=== PATIENT | female | born 1950 | race African-American/Black ===

== ENCOUNTER 2019-02-17 10:27 | Emergency (ER) | payer OTHER ==
[2019-02-17 10:34] VITALS: BP 123/47; PULSE 79; TEMP 98; BMI 26.8
--- NOTE | 2019-02-17 12:03 | PDOC ---
History of Present Illness - General Chief Complaint: Edema Stated Complaint: FINGER PAIN/INFECTION Time Seen by Provider: 02/17/19 10:58 History Source: Patient Exam Limitations: No Limitations Past History - Travel Traveled outside of the country in the last 30 days: No Close contact w/someone who was outside of country & ill: No - Past Medical History Allergies/Adverse Reactions: Allergies Allergy/AdvReac Type Severity Reaction Status Date / Time shrimp Allergy Severe Swelling Uncoded 02/17/19 10:34 Home Medications: Ambulatory Orders Atenolol [Tenormin] 25 mg PO DAILY 10/31/12 Chlorthalidone 50 mg PO DAILY 10/31/12 Fenofibrate 160 mg PO DAILY 10/31/12 Gabapentin [Neurontin] 300 mg PO BID 10/31/12 Losartan Potassium [Cozaar -] 100 mg PO DAILY 10/31/12 Naproxen [Naprosyn] 500 mg PO BID PRN 10/31/12 Raloxifene HCl [Evista] 60 mg PO DAILY 10/31/12 Oxycodone HCl/Acetaminophen [Percocet 5-325 mg Tablet] 1 - 2 tab PO Q6H PRN #0 tablet 11/01/12 Cephalexin Monohydrate [Keflex -] 500 mg PO BID #14 capsule 02/17/19 Naproxen 500 mg PO BID #14 tablet. 02/17/19 Anemia: Yes Asthma: Yes Cancer: No Cardiac Disorders: No CVA: No COPD: No CHF: No Dementia: No Diabetes: No (BORDERLINE) GI Disorders: No Disorders: No HTN: Yes Hypercholesterolemia: Yes Liver Disease: No Seizures: No Thyroid Disease: No - Surgical History Abdominal Surgery: Yes (HERNIA REPAIR) Appendectomy: No Cardiac Surgery: No Cholecystectomy: No Lung Surgery: No Neurologic Surgery: No Orthopedic Surgery: No - Psycho Social/Smoking Cessation Hx Smoking History: Current every day smoker Have you smoked in the past 12 months: No Number of Cigarettes Smoked Daily: 3 Information on smoking cessation initiated: No Hx Alcohol Use: No Drug/Substance Use Hx: No Substance Use Type: Alcohol Hx Substance Use Treatment: No Review of Systems - Review of Systems Able to Perform ROS?: Yes Comments:: 02/17/19 12:46 CONSTITUTIONAL: Absent: fever, chills, diaphoresis, generalized weakness, malaise, loss of appetite HEENT: Absent: rhinorrhea, nasal congestion, throat pain, throat swelling, difficulty swallowing, mouth swelling, ear pain, eye pain, visual Changes MUSCULOSKELETAL: Absent: myalgia, arthralgia, joint swelling SKIN: Present: R 2nd digit pain Absent: rash, itching, pallor NEUROLOGIC: Absent: headache, focal weakness or paresthesias, dizziness, unsteady gait, seizure, mental status changes, bladder or bowel incontinence PSYCHIATRIC: Absent: anxiety, depression, suicidal or homicidal ideation, hallucinations. Is the patient limited Azeri proficient: No *Physical Exam - Vital Signs Last Vital Signs Temp Pulse Resp BP Pulse Ox 98.0 F 79 16 123/47 L 99 02/17/19 10:31 02/17/19 10:31 02/17/19 10:31 02/17/19 10:31 02/17/19 10:31 - Physical Exam Comments: 02/17/19 12:48 GENERAL: The patient is awake, alert, and fully oriented, in no acute distress. HEAD: Normal with no signs of trauma. EYES: Pupils equal, round and reactive to light, extraocular movements intact, sclera anicteric, conjunctiva clear. EXTREMITIES: Normal range of motion, no edema. NEUROLOGICAL: Normal speech, normal gait. PSYCH: Normal mood, normal affect. SKIN: Tenderness to palpation at the tip of the left second digit along the lateral nail bed. No obvious fluctuance. Warm, Dry, normal turgor, no rashes or lesions noted. Medical Decision Making - Medical Decision Making 02/17/19 12:51 The patient is a 68-year-old female past medical history of hypertension, hyperlipidemia, non-insulin dependent diabetes, presents to the ER today with left second digit pain for 3 days. She states that she has been soaking it at home but is not relieved her symptoms. She states she gets her nails done approximately every 3 weeks. Last week her right second nail broke and she agrees occluded. Denies fevers, chills, numbness and tingling weakness the affected extremity. A/P: Cellulitis/paronychia On exam patient exquisitely tender to the lateral aspect of the right second digit (nailbed) No obvious fluctuance on palpation. Explained to patient that this is not ready to be drained at this time as there is no pocket of infection that has formed. Place patient on Keflex and naproxen Patient to follow-up on Wednesday for wound check and possible drainage of the paronychia. Explained to patient that she should not go to the nail salon until her finger has healed. Discharge home I discussed the physical exam findings, ancillary test results and final diagnoses with the patient. I answered all of the patient's questions. The patient was satisfied with the care received and felt comfortable with the discharge plan and treatment plan. The Patient agrees to follow up with the primary care physician/specialist within 24-72 hours. Return precautions were given. Discharge - Discharge Information Problems reviewed: Yes Clinical Impression/Diagnosis: Paronychia Condition: Stable Disposition: HOME - Admission No - Additional Discharge Information Prescriptions: Cephalexin Monohydrate [Keflex -] 500 mg PO BID #14 capsule Naproxen 500 mg PO BID #14 tablet.dr - Follow up/Referral Referrals: Graham Avila MD, MD [Primary Care Provider] - - Patient Discharge Instructions Patient Printed Discharge Instructions: DI for Paronychia Additional Instructions: You were evaluated for your finger pain today. It is the beginning of a paronychia or a skin infection. There is no pocket to drain today Please take the Keflex twice a day for 1 week. Soak the finger for 20-minute intervals 4-5 times a day to help bring the infection to the surface. Please return on Wednesday for wound check if you have a blister around the site. If your pain has gone away please follow-up with your primary care doctor as usual Return to the ER for worsening pain, fever or if you have any changes in your symptoms. - Post Discharge Activity Work/Back to School Note: Back to Work
== END 2019-02-17 12:28 | disposition home or self-care (01) ==
LOC: JERFT 10:27
DX: L03.011 Cellulitis of right finger (principal); I10 Essential (primary) hypertension; E78.00 Pure hypercholesterolemia, unspecified; E11.9 Type 2 diabetes mellitus without complications; F17.210 Nicotine dependence, cigarettes, uncomplicated; Z87.09 Personal history of other diseases of the respiratory system; Z86.2 Personal history of diseases of the blood and blood-forming organs and certain disorders involving the immune mechanism; Z91.013 Allergy to seafood
CPT/HCPCS: 99282-25

== ENCOUNTER 2019-02-19 15:50 | Inpatient (IN) | payer OTHER ==
--- NOTE | 2019-02-19 17:42 | PDOC ---
History of Present Illness - General Chief Complaint: Edema Stated Complaint: SWOLLEN RT HAND Time Seen by Provider: 02/19/19 17:15 History Source: Patient Exam Limitations: No Limitations - History of Present Illness Initial Comments: 02/19/19 17:31 Patient is a 68-year-old female with history of HTN, DM, here with complaint of right hand pain and swelling since which started 4 days ago. Patient states she had her nails done 3 weeks ago but developed a crack in the nail of the right index finger 4 days ago, which she crazy glued. She started to develop pain and swelling to the finger, then came to the emergency room for evaluation. She was put on Keflex and has been compliant with it, however symptoms have been worsening and now has swelling and redness tracking up the arm. Patient is right-hand dominant. Denies fever, chills, nausea, vomiting. PMD: Dr. Graham Avila PMHX: as above PSOCHX: (+) cig 5/day ALL: NKDA (shrimp allergy) GENERAL/CONSTITUTIONAL: [No fever or chills. No weakness. No weight change.] HEAD, EYES, EARS, NOSE AND THROAT: [No change in vision. No ear pain or discharge. No sore throat.] CARDIOVASCULAR: [No chest pain or shortness of breath.] RESPIRATORY: [(+) cough, (-) wheezing, or hemoptysis.] GASTROINTESTINAL: [No nausea, vomiting, diarrhea or constipation. No rectal bleeding.] GENITOURINARY: [No dysuria, frequency, or change in urination.] MUSCULOSKELETAL: [No joint or muscle swelling or pain. No neck or back pain.] SKIN AND BREASTS: [No rash or easy bruising.] NEUROLOGIC: [No headache, vertigo, loss of consciousness, or loss of sensation.] PSYCHIATRIC: [No depression or anxiety.] ENDOCRINE: [No increased thirst. No abnormal weight change.] HEMATOLOGIC/LYMPHATIC: [No anemia, easy bleeding, or history of blood clots.] ALLERGIC/IMMUNOLOGIC: [(+) hives or skin allergy - shrimps. No latex allergy.] GENERAL: [The patient is awake, alert, and fully oriented, in no acute distress. HEAD: [Normal with no signs of trauma.] EYES: [Pupils equal, round and reactive to light, extraocular movements intact, sclera anicteric, conjunctiva clear.] ENT: [Ears normal, nares patent, oropharynx clear without exudates. Moist mucous membranes.] NECK: [Normal range of motion, supple without lymphadenopathy, JVD, or masses.] LUNGS: [Breath sounds equal, clear to auscultation bilaterally. No wheezes, and no crackles.] HEART: [Regular rate and rhythm, normal S1 and S2 without murmur, rub.] ABDOMEN: [Soft, nontender, normoactive bowel sounds. No guarding, no rebound. No masses.] EXTREMITIES: [painful range of motion of the right index finger at the PP/DP, no edema. No clubbing or cyanosis. No cords, (+) erythema, (+) tenderness right hand.] NEUROLOGICAL: [Cranial nerves II through XII grossly intact. Normal speech, normal gait.] PSYCH: [Normal mood, normal affect.] SKIN: [Warmth to the right hand, tenderness right index distal tip to the wrist , with a pocket below the nail. Past History - Past Medical History Allergies/Adverse Reactions: Allergies Allergy/AdvReac Type Severity Reaction Status Date / Time shrimp Allergy Verified 02/19/19 18:23 shrimp Allergy Severe Swelling Uncoded 02/17/19 10:34 Home Medications: Ambulatory Orders Atenolol [Tenormin] 25 mg PO DAILY 10/31/12 Chlorthalidone 50 mg PO DAILY 10/31/12 Fenofibrate 160 mg PO DAILY 10/31/12 Gabapentin [Neurontin] 300 mg PO BID 10/31/12 Losartan Potassium [Cozaar -] 100 mg PO DAILY 10/31/12 Naproxen [Naprosyn] 500 mg PO BID PRN 10/31/12 Raloxifene HCl [Evista] 60 mg PO DAILY 10/31/12 Oxycodone HCl/Acetaminophen [Percocet 5-325 mg Tablet] 1 - 2 tab PO Q6H PRN #0 tablet 11/01/12 Cephalexin Monohydrate [Keflex -] 500 mg PO BID #14 capsule 02/17/19 Naproxen 500 mg PO BID #14 tablet. 02/17/19 Anemia: Yes Asthma: Yes Cancer: No Cardiac Disorders: No CVA: No COPD: No CHF: No Dementia: No Diabetes: No (BORDERLINE) GI Disorders: No Disorders: No HTN: Yes Hypercholesterolemia: Yes Liver Disease: No Seizures: No Thyroid Disease: No - Surgical History Abdominal Surgery: Yes (HERNIA REPAIR) Appendectomy: No Cardiac Surgery: No Cholecystectomy: No Lung Surgery: No Neurologic Surgery: No Orthopedic Surgery: No - Psycho Social/Smoking Cessation Hx Smoking History: Never smoked Have you smoked in the past 12 months: No Number of Cigarettes Smoked Daily: 3 Hx Alcohol Use: Yes ("Weekends") Drug/Substance Use Hx: No Substance Use Type: Alcohol Hx Substance Use Treatment: No *Physical Exam - Vital Signs Last Vital Signs Temp Pulse Resp BP Pulse Ox 97.8 F 82 20 144/52 L 100 02/19/19 15:54 02/19/19 15:54 02/19/19 15:54 02/19/19 15:54 02/19/19 15:54 ED Treatment Course - LABORATORY CBC & Chemistry Diagram: 02/19/19 18:10 02/19/19 17:45 - RADIOLOGY Radiology Studies Ordered: Category Date Time Status HAND- RIGHT [RAD] Stat Radiology 02/19/19 17:27 Ordered Medical Decision Making - Medical Decision Making 02/19/19 17:31 Patient is a 68-year-old female with history of HTN, DM, here with complaint of right hand pain and swelling since which started 4 days ago. Patient states she had her nails done 3 weeks ago but developed a crack in the nail of the right index finger 4 days ago, which she crazy glued. She started to develop pain and swelling to the finger, then came to the emergency room for evaluation. She was put on Keflex and has been compliant with it, however symptoms have been worsening and now has swelling and redness tracking up the arm. Patient is right-hand dominant. Denies fever, chills, nausea, vomiting. Symptoms consistent with cellulitis of right hand secondary to infected paronychia. Will get x-ray right hand, labs including blood culture Patient has been on Keflex and has failed outpatient antibiotics will probably need IV antibiotics. We will start vancomycin. admit 02/19/19 19:57 EKG SR at rate 72, normal axis, PACs, no ST-T wave changes X-ray of hand noted small pocket of ear at the distal tip right index finger, no bone involvement, no foreign body. Chest x-ray increased marking right base. 02/19/19 21:53 Case discussed with hospitalist Julisa will admit. Discharge - Discharge Information Problems reviewed: Yes Clinical Impression/Diagnosis: Paronychia, Cellulitis of right hand, Paronychia of finger of right hand Condition: Stable - Admission Yes - Follow up/Referral - Patient Discharge Instructions - Post Discharge Activity
[2019-02-19] MEDS ORDERED: VANCOMYCIN 1 GRAM (PRE-DOCKED) 1,000 MG/250 ML BAG IVPB ONE ×2 (17:46→18:24)
[2019-02-19 18:14] LABS: INR 0.92 (0.83-1.09); PROTHROMBIN TIME (PATIENT) 10.9 SEC (9.7-13.0)
[2019-02-19 18:19] LABS: BASO % 1.4 % (0-2.0); EOS % 1.3 % (0-4.5); HEMATOCRIT 37.7 % (32.4-45.2); HEMOGLOBIN 12.4 GM/dL (10.7-15.3); LYMPH % 23.1 % (8-40); MCHC 32.9 g/dl (32.0-36.0); MEAN CELL VOLUME 91.2 fl (80-96); MEAN PLT VOLUME 8.5 fl (7.5-11.1); MONO % 8.1 % (3.8-10.2); NEUT % 66.1 % (42.8-82.8); PLATELET COUNT 275 K/MM3 (134-434); RBC 4.13 M/mm3 (3.60-5.2); RDW 12.9 % (11.6-15.6)
[2019-02-19 18:38] LABS: ALBUMIN 4.6 g/dl (3.4-5.0); BILIRUBIN,TOTAL 0.7 mg/dL (0.2-1); BLOOD UREA NITROGEN 16.9 mg/dL (7-18); CALCIUM 9.5 mg/dL (8.5-10.1); CREATININE 0.7 mg/dL (0.55-1.3); POTASSIUM 3.9 mmol/L (3.5-5.1); TOT PROT 7.9 g/dl (6.4-8.2)
--- NOTE | 2019-02-19 21:41 | HP ---
Admitting History and Physical - Primary Care Physician PCP: Graham Avila MD - Admission Chief Complaint: Right Hand/Finger Swelling, Pain History of Present Illness: This is a 68 y/o woman with a PMHx of HTN, DM. Who presents to the ED with right hand pain and swelling x4 days ago. Patient reports having her nails done 3 weeks ago but developed a crack in the nail of the right index finger 4 days ago, which she "crazy glued". Patient reports developing pain and swelling to the right index finger, going to the emergency room 02/17 for evaluation. She was put on Keflex and reports being compliant with it, however she reports that her symptoms have been worsening and now has swelling and redness tracking up the right arm. Patient is right-hand dominant. Patient denies fever, chills, cough, SOB, dizziness, THOMAS, CP, palpitations, AP, N/V/D, constipation, dysuria History Source: Patient Limitations to Obtaining History: No Limitations - Past Medical History Cardiovascular: Yes: HTN, Hyperlipdemia Endocrine: Yes: Diabetes Mellitus - Past Surgical History Past Surgical History: Yes: Hernia Repair - Smoking History Smoking history: Former smoker Have you smoked in the past 12 months: No Aproximately how many cigarettes per day: 3 - Alcohol/Substance Use Hx Alcohol Use: Yes ("Weekends") History of Substance Use: reports: None - Social History Usual Living Arrangement: Yes: Alone ADL: Independent History of Recent Travel: No Home Medications - Allergies Allergies/Adverse Reactions: Allergies Allergy/AdvReac Type Severity Reaction Status Date / Time shrimp Allergy Verified 02/19/19 18:23 shrimp Allergy Severe Swelling Uncoded 02/17/19 10:34 - Home Medications Home Medications: Ambulatory Orders Atenolol [Tenormin] 25 mg PO DAILY 10/31/12 Chlorthalidone 50 mg PO DAILY 10/31/12 Fenofibrate 160 mg PO DAILY 10/31/12 Gabapentin [Neurontin] 300 mg PO BID 10/31/12 Losartan Potassium [Cozaar -] 100 mg PO DAILY 10/31/12 Naproxen [Naprosyn] 500 mg PO BID PRN 10/31/12 Raloxifene HCl [Evista] 60 mg PO DAILY 10/31/12 Oxycodone HCl/Acetaminophen [Percocet 5-325 mg Tablet] 1 - 2 tab PO Q6H PRN #0 tablet 11/01/12 Cephalexin Monohydrate [Keflex -] 500 mg PO BID #14 capsule 02/17/19 Naproxen 500 mg PO BID #14 tablet. 02/17/19 Home Medications (free text): Chlorathalidone 50mg po QD. Losartan 100mg po QD. Metformin 500mg po BID. verified with patient Family Medical History Family History: Unable to Obtain Review of Systems - Review of Systems Constitutional: reports: No Symptoms Eyes: reports: No Symptoms HENT: reports: No Symptoms Neck: reports: No Symptoms Cardiovascular: reports: No Symptoms Respiratory: reports: No Symptoms Gastrointestinal: reports: No Symptoms Genitourinary: reports: No Symptoms Breasts: reports: No Symptoms Reported Musculoskeletal: reports: Extremity Pain Integumentary: reports: Erythema Neurological: reports: No Symptoms Endocrine: reports: No Symptoms Hematology/Lymphatic: reports: No Symptoms Psychiatric: reports: No Symptoms Pain Intensity: 6 Physical Examination Vital Signs: Vital Signs Temperature 98.4 F 02/19/19 20:38 Pulse Rate 84 02/19/19 20:38 Respiratory Rate 14 02/19/19 20:38 Blood Pressure 146/98 02/19/19 20:38 O2 Sat by Pulse Oximetry (%) 98 02/19/19 20:38 Constitutional: Yes: Well Nourished, No Distress, Calm Eyes: Yes: WNL, Conjunctiva Clear, EOM Intact, PERRL HENT: Yes: WNL, Atraumatic, Normocephalic Neck: Yes: WNL, Supple, Trachea Midline Cardiovascular: Yes: WNL, Regular Rate and Rhythm, S1, S2 Respiratory: Yes: WNL, Regular, CTA Bilaterally Gastrointestinal: Yes: WNL, Normal Bowel Sounds, Soft ...Rectal Exam: Yes: Deferred Renal/: Yes: WNL Breast(s): Yes: WNL Musculoskeletal: Yes: Other (R- Index Finger swelling) Extremities: Yes: Erythema, Other (limited ROM to right index PIP- due to TTP) Peripheral Pulses WNL: Yes Integumentary: Yes: Erythema Wound/Incision: Yes: Reddened Neurological: Yes: WNL, Alert, Oriented ...Motor Strength: WNL Psychiatric: Yes: WNL, Alert, Oriented Labs: CBC, BMP 02/19/19 18:10 02/19/19 17:45 Imaging - Results Chest X-ray: Image Reviewed X-ray: Image Reviewed EKG: Image Reviewed Problem List - Problems (1) Cellulitis of right hand Assessment/Plan: Likely secondary to Failed Outpatient Therapy Blood Cultures-pending No leukocytosis, afebrile L- Xray image review Vancomycin initiated in ED, will continue Appreciate ID consult Monitor CBC, BMP Neurovascular checks Elevate extremity Monitor vitals Code(s): L03.113 - CELLULITIS OF RIGHT UPPER LIMB (2) Paronychia of finger of right hand Assessment/Plan: Likely secondary to Failed Outpatient Therapy from artificial nails use Blood Cultures- pending Continue Vancomycin Appreciate ID consult Monitor CBC Monitor vitals Code(s): L03.011 - CELLULITIS OF RIGHT FINGER (3) HTN (hypertension) Assessment/Plan: stable Continue home meds Monitor renal function Code(s): I10 - ESSENTIAL (PRIMARY) HYPERTENSION (4) Diabetes mellitus Assessment/Plan: stable BGMs ISS Hold Metformin Code(s): E11.9 - TYPE 2 DIABETES MELLITUS WITHOUT COMPLICATIONS Assessment/Plan This is a 68 y/o woman with a PMHx of HTN, Diabetes Mellitus. Admitted to [facility] for Cellulitis of Right Hand for further evaluation of their emergent condition. Plan: See Problem List FEN PO fluids as tolerated Replete lytes prn Low Na, Diabetic Diet DVT ppx OOB SCDs Heparin SQ Dispo: Requires Inpatient Care Visit type - Emergency Visit Emergency Visit: Yes ED Registration Date: 02/19/19 Care time: The patient presented to the Emergency Department on the above date and was hospitalized for further evaluation of their emergent condition. - New Patient This patient is new to me today: Yes Date on this admission: 02/19/19 - Critical Care Critical Care patient: No
[2019-02-19] MEDS: HEPARIN NA (PORCINE) 5,000 UNITS/ML 1ML VIAL SQ SCH (22:13)
[2019-02-20 07:53] LABS: BASO % 0.5 % (0-2.0); EOS % 3.7 % (0-4.5); HEMATOCRIT 31.3 % (32.4-45.2); HEMOGLOBIN 10.6 GM/dL (10.7-15.3); LYMPH % 30.9 % (8-40); MCH 30.5 pg (25.7-33.7); MCHC 33.9 g/dl (32.0-36.0); MEAN CELL VOLUME 90.1 fl (80-96); MEAN PLT VOLUME 8.1 fl (7.5-11.1); MONO % 9.4 % (3.8-10.2); NEUT % 55.5 % (42.8-82.8); PLATELET COUNT 230 K/MM3 (134-434); RBC 3.47 M/mm3 (3.60-5.2); RDW 12.6 % (11.6-15.6); WHITE BLOOD COUNT 4.7 K/mm3 (4.0-10.0)
[2019-02-20 08:20] LABS: BLOOD UREA NITROGEN 16.9 mg/dL (7-18); CALCIUM 9.3 mg/dL (8.5-10.1); CREATININE 0.6 mg/dL (0.55-1.3); POTASSIUM 3.8 mmol/L (3.5-5.1)
--- NOTE | 2019-02-20 09:36 | CON.ORTH ---
Consult Reason for Consultation:: right index finger infection - Past Medical History Cardio/Vascular: Yes: HTN, Hyperlipdemia Endocrine: Yes: Diabetes Mellitus - Past Surgical History Past Surgical History: Yes: Hernia Repair - Alcohol/Substance Use Hx Alcohol Use: Yes ("Weekends") History of Substance Use: reports: None - Smoking History Smoking history: Former smoker Have you smoked in the past 12 months: No Aproximately how many cigarettes per day: 3 - Social History ADL: Independent History of Recent Travel: No Home Medications - Allergies Allergies/Adverse Reactions: Allergies Allergy/AdvReac Type Severity Reaction Status Date / Time shrimp Allergy Verified 02/19/19 18:23 shrimp Allergy Severe Swelling Uncoded 02/17/19 10:34 - Home Medications Home Medications: Ambulatory Orders Atenolol [Tenormin] 25 mg PO DAILY 10/31/12 Chlorthalidone 50 mg PO DAILY 10/31/12 Fenofibrate 160 mg PO DAILY 10/31/12 Gabapentin [Neurontin] 300 mg PO BID 10/31/12 Losartan Potassium [Cozaar -] 100 mg PO DAILY 10/31/12 Naproxen [Naprosyn] 500 mg PO BID PRN 10/31/12 Raloxifene HCl [Evista] 60 mg PO DAILY 10/31/12 Oxycodone HCl/Acetaminophen [Percocet 5-325 mg Tablet] 1 - 2 tab PO Q6H PRN #0 tablet 11/01/12 Cephalexin Monohydrate [Keflex -] 500 mg PO BID #14 capsule 02/17/19 Naproxen 500 mg PO BID #14 tablet. 02/17/19 Physical Exam for Ortho Vital Signs: Vital Signs Temperature 98 F 02/20/19 08:39 Pulse Rate 60 02/20/19 05:42 Respiratory Rate 18 02/20/19 05:42 Blood Pressure 101/42 L 02/20/19 05:42 O2 Sat by Pulse Oximetry (%) 100 02/20/19 05:42 Labs: CBC, BMP 02/20/19 07:00 02/20/19 07:00 INR, PTT INR 0.92 (0.83-1.09) 02/19/19 17:45 - Upper Extremity Hand: Yes: Right, Erythema, Limited ROM, Pain, Swelling, Tenderness, Other (+ fluctuance distal phalanx index finger, nvi) Imaging - Results X-ray: Image Reviewed Assessment/Plan 68 y/o woman with a PMHx of HTN, DM. Who presents to the ED with right hand pain and swelling x4 days ago. Patient reports having her nails done 3 weeks ago but developed a crack in the nail of the right index finger 4 days ago, which she "crazy glued". Patient reports developing pain and swelling to the right index finger, going to the emergency room 02/17 for evaluation. She was put on Keflex and reports being compliant with it, however she reports that her symptoms have been worsening and now has swelling and redness tracking up the right arm. Patient is right-hand dominant. Patient denies fever, chills, cough , SOB, dizziness, THOMAS, CP, palpitations, AP, N/V/D, constipation, dysuria. a/p- right index finger cellulitis, paronychia/distal phalanx abscess Risks and benefits were d/w pt in detail consented for bedside I&D Under sterile technique, I&D of right index finger performed, 2 cc of pus expressed, culture taken and sent to lab, procedure tolerated well IV abx as per ID warm soaks 2-3 times per day will follow d/w Dr. Ramirez
[2019-02-20] MEDS ORDERED: VANCOMYCIN 1 GRAM (PRE-DOCKED) 1,000 MG/250 ML BAG IVPB SCH (10:00)
[2019-02-20] MEDS ORDERED: CHLORTHALIDONE 50 MG TABLET PO SCH (10:00)
[2019-02-20] MEDS ORDERED: VANCOMYCIN 1,000 MG in DEXTROSE 5%-WATER - 250 ML IVPB SCH (10:00)
[2019-02-20] MEDS: LOSARTAN POTASSIUM 50 MG TABLET (FP) PO SCH (10:13)
[2019-02-20] MEDS: HEPARIN NA (PORCINE) 5,000 UNITS/ML 1ML VIAL SQ SCH ×2 (10:13→21:31)
[2019-02-20] MEDS ORDERED: oxyCODONE HCL 5 MG TABLET PO PRN (10:49)
[2019-02-20] MEDS ORDERED: ACETAMINOPHEN 325 MG TABLET (FP) PO PRN (10:49)
--- NOTE | 2019-02-20 10:53 | PN ---
Progress Note, Physician Chief Complaint: patient seen and examined s/p Incision and Drainage of the right index finger lesion - Current Medication List Current Medications: Active Medications Acetaminophen (Tylenol -) 650 mg PO Q6H PRN PRN Reason: PAIN LEVEL 1-5 Chlorthalidone (Hygroton -) 50 mg PO DAILY [facility] Last Admin: 02/20/19 10:13 Dose: 50 mg Heparin Sodium (Porcine) (Heparin -) 5,000 unit SQ BID [facility] Last Admin: 02/20/19 10:13 Dose: 5,000 unit Vancomycin HCl 1,000 mg/ (Dextrose) 250 mls @ 166.667 mls/hr IVPB Q12H [facility]; Protocol Vancomycin HCl (Vancomycin (Pre-Docked)) 1,000 mg in 250 mls @ 166.667 mls/hr IVPB BID [facility] Stop: 02/20/19 23:29 Last Admin: 02/20/19 10:22 Dose: 166.667 mls/hr Losartan Potassium (Cozaar -) 100 mg PO DAILY [facility] Last Admin: 02/20/19 10:13 Dose: 100 mg Metformin HCl (Glucophage -) 500 mg PO BID@0700,1630 [facility] Oxycodone HCl (Roxicodone -) 5 mg PO Q6H PRN PRN Reason: PAIN LEVEL 7 - 10 - Objective Vital Signs: Vital Signs Temperature 98 F 02/20/19 08:39 Pulse Rate 60 02/20/19 05:42 Respiratory Rate 18 02/20/19 05:42 Blood Pressure 101/42 L 02/20/19 05:42 O2 Sat by Pulse Oximetry (%) 100 02/20/19 05:42 Constitutional: Yes: Calm Neck: Yes: Trachea Midline Cardiovascular: Yes: Regular Rate and Rhythm, S1, S2 Respiratory: Yes: CTA Bilaterally Gastrointestinal: Yes: Normal Bowel Sounds, Soft Extremities: Yes: Other (right hand dorsal surface swollen warm and tender to touch) Edema: No Neurological: Yes: Alert, Oriented Labs: CBC, BMP 02/20/19 07:00 02/20/19 07:00 INR, PTT INR 0.92 (0.83-1.09) 02/19/19 17:45 Problem List - Problems (1) Cellulitis of right hand Assessment/Plan: iv abx ID eval s/p I/D and cultures sent Code(s): L03.113 - CELLULITIS OF RIGHT UPPER LIMB (2) Diabetes mellitus Assessment/Plan: diabetic diet check [id number] fara hold of metformin for now check bgm Code(s): E11.9 - TYPE 2 DIABETES MELLITUS WITHOUT COMPLICATIONS (3) HTN (hypertension) Assessment/Plan: continue chlorthalidone Code(s): I10 - ESSENTIAL (PRIMARY) HYPERTENSION
[2019-02-20] MEDS ORDERED: ACETAMINOPHEN 325 MG TABLET (FP) ONE (10:59)
--- NOTE | 2019-02-20 11:13 | PN ---
Progress Note (short form) - Note Progress Note: ID CONSULT DICTATED IMP/RECCD 68 yo female with HTN/NIDDM admitted with pain and swelling of her right index finger that has spread to swelling of her hand she was seen in the ED on 02/17 and prescribed keflex and naprosyn no improvement noted so she came back reports she went [facility] weeks ago and hed acrylic nais done, the nail on her index finger cracked this week and she used crazy glue to fix it several days later she noted the swelling no fevers or chills paronychia/pulp infection right index finger- s/p incision and drainage by ortho before I was able to see it cultures sent received vancomycin in ED last night she has edema extending to her wrist - FROM of the entire hand and wrist except to the index finger which is limited due to diffuse swelling continue vancomycin, add zosyn for GNR (finger- would cover water and mouth organisms too) f/u culture Problem List - Problems (1) Paronychia of finger of right hand Code(s): L03.011 - CELLULITIS OF RIGHT FINGER (2) Cellulitis of right hand Code(s): L03.113 - CELLULITIS OF RIGHT UPPER LIMB (3) Diabetes mellitus Code(s): E11.9 - TYPE 2 DIABETES MELLITUS WITHOUT COMPLICATIONS
[2019-02-20] MEDS ORDERED: PIPERACILLIN/TAZOB 3.375 GM 3.375 GM/50 ML BAG IVPB ONE (12:02)
[2019-02-20] MEDS: PIPERACILLIN/TAZOB 3.375 GM 3.375 GM in DEXTROSE 5%-WATER - 50 ML IVPB SCH ×2 (12:38→19:05)
--- NOTE | 2019-02-20 15:01 | CONS ---
INFECTIOUS DISEASE CONSULTATION DATE OF CONSULTATION: DATE OF DICTATION: 02/20/2019 This is a 68-year-old woman, lives at home with her daughter, past medical history of uii-qkktegf-jshjwyjjv diabetes and hypertension. She gets her nails done regularly. Last time was 3 weeks ago. She had some nails done. About a week ago, she developed a crack on the nail on her right index finger. She Krazy Glued the nail. Several days later, it became swollen. She was seen in the emergency room on the and prescribed Keflex and Naprosyn. She took this Wednesday night and on Wednesday with no improvement. Instead, she started having swelling of the right hand; so, she came to the ER. She denies any fevers and chills. She has no nausea or vomiting. She otherwise feels well. PAST MEDICAL HISTORY: Notable for hypertension, hyperlipidemia, sfy-arwobni-nognssgdt diabetes. SURGICAL HISTORY: Notable for hernia repair. SOCIAL HISTORY: She smokes 5 cigarettes a day, drinks alcohol socially. She lives with her daughter, and she works as a school resource officer. She has no pets. REVIEW OF SYSTEMS: Notable for increased pain with movement of her index finger. Otherwise, she is able to use her right hand. Pain in the hand is limited to motion, especially of the index finger. Before I saw her, she was seen by the orthopedist, and she had the index finger incised and drained. ALLERGIES: She has no known drug allergies. She is allergic to SHRIMP. MEDICATIONS AT HOME: Include chlorthalidone 50 mg a day, losartan, metformin. FAMILY HISTORY: Unremarkable. PHYSICAL EXAMINATION: General: She is a pleasant woman. Vital Signs: Temperature is 98. Pulse is 60. Blood pressure 101/42, respiratory rate of 18. She is saturating 100% on room air. HEENT: She is normocephalic. Her eyes are anicteric. Neck: Supple. Lungs: Clear to auscultation. Heart: Regular rate and rhythm. Abdomen: Soft, nontender. Extremities: She has diffuse swelling of her right hand, full range of motion of her wrist and all her fingers. She has some limited range of motion of the index finger because it feels tight and is somewhat painful. The pulp appears erythematous and swollen. LABORATORY DATA: Her labs are notable for a white count on admission of 7; today is 4.7. Hemoglobin is 10.6. Platelets are 230. INR is 0.9. BUN is 16 and creatinine 0.6. LFTs are normal. Cultures are pending. In summary, this is a 68-year-old woman, adc-vqqzcoz-pjketobxt diabetes and hypertension, admitted with a paronychia pulp infection of her right index finger with accompanying right hand cellulitis and erythema in the setting of diabetes. I would continue vancomycin. Would add Zosyn for gram-negative coverage. This is a finger. Would cover for water and mouth organisms in a diabetic person and follow up cultures. Further recommendations to follow. Selam GAYTAN/[id number]
--- NOTE | 2019-02-20 15:59 | EKG ---
Test Reason : Blood Pressure : / mmHG Vent. Rate : 072 BPM Atrial Rate : 072 BPM P-R Int : 140 ms QRS Dur : 076 ms QT Int : 396 ms P-R-T Axes : 022 002 009 degrees QTc Int : 433 ms SINUS RHYTHM WITH PREMATURE ATRIAL COMPLEXES WITH ABERRANT CONDUCTION OTHERWISE NORMAL ECG WHEN COMPARED WITH ECG OF 26-OCT-2012 18:00, ABERRANT CONDUCTION IS NOW PRESENT Confirmed by YENIFER MOODY MD ([id number]) on 02/20/2019 3:59:26 PM Referred By: Confirmed By:YENIFER MOODY MD
[2019-02-20] MEDS ORDERED: metFORMIN HCL 500 MG TABLET (FP) PO SCH (16:30)
[2019-02-20 18:17] VITALS: BMI 27.6
[2019-02-20] MEDS ORDERED: PIPERACILLIN/TAZOBACTAM 3.375 GM VIAL IVPB ONE (19:04)
[2019-02-20] MEDS ORDERED: DEXTROSE 5%-WATER - 50 ML IVPB ONE (19:04)
[2019-02-20] MEDS: VANCOMYCIN 1 GRAM (PRE-DOCKED) 1,000 MG/250 ML BAG IVPB SCH (21:38)
[2019-02-21] MEDS ORDERED: DEXTROSE 5%-WATER - 50 ML IVPB ONE ×2 (01:45→10:11)
[2019-02-21] MEDS ORDERED: PIPERACILLIN/TAZOBACTAM 3.375 GM VIAL IVPB ONE ×2 (01:45→10:10)
[2019-02-21] MEDS: PIPERACILLIN/TAZOB 3.375 GM 3.375 GM in DEXTROSE 5%-WATER - 50 ML IVPB SCH ×2 (02:37→11:03)
[2019-02-21] MEDS ORDERED: CHLORTHALIDONE 25 MG TABLET PO SCH (10:00)
[2019-02-21] MEDS ORDERED: NAPROXEN 500 MG TABLET (FP) PO PRN ×2 (10:09→10:35)
[2019-02-21] MEDS ORDERED: PT OWN MED DRAWER 7, Y5N ONE (10:10)
--- NOTE | 2019-02-21 10:12 | PN ---
Progress Note, Physician Chief Complaint: right index finger cellulitis, paronychia/distal phalanx abscess History of Present Illness: S/P I&D of right index finger On IV Vanco+ Zosyn - Current Medication List Current Medications: Active Medications Acetaminophen (Tylenol -) 650 mg PO Q6H PRN PRN Reason: PAIN LEVEL 1-5 Last Admin: 02/20/19 11:01 Dose: 650 mg Chlorthalidone (Hygroton -) 50 mg PO DAILY [facility] Heparin Sodium (Porcine) (Heparin -) 5,000 unit SQ BID [facility] Last Admin: 02/20/19 21:31 Dose: 5,000 unit Vancomycin HCl (Vancomycin (Pre-Docked)) 1,000 mg in 250 mls @ 166.667 mls/hr IVPB Q12H [facility]; Protocol Last Admin: 02/20/19 21:38 Dose: 166.667 mls/hr Piperacillin Sod/Tazobactam (Sod 3.375 gm/ Dextrose) 50 mls @ 100 mls/hr IVPB Q8H-IV [facility]ANKIE; Protocol Last Admin: 02/21/19 02:37 Dose: 100 mls/hr Losartan Potassium (Cozaar -) 100 mg PO DAILY [facility] Last Admin: 02/20/19 10:13 Dose: 100 mg Oxycodone HCl (Roxicodone -) 5 mg PO Q6H PRN PRN Reason: PAIN LEVEL 7 - 10 - Objective Vital Signs: Vital Signs Temperature 97.9 F 02/21/19 06:16 Pulse Rate 71 02/21/19 06:16 Respiratory Rate 18 02/21/19 06:16 Blood Pressure 134/63 02/21/19 06:16 O2 Sat by Pulse Oximetry (%) 99 02/20/19 20:46 Constitutional: Yes: Well Nourished, No Distress, Calm Cardiovascular: Yes: Regular Rate and Rhythm Respiratory: Yes: Regular Gastrointestinal: Yes: Normal Bowel Sounds, Soft Genitourinary: Yes: WNL Musculoskeletal: Yes: Other (right index finger cellulitis, paronychia/distal phalanx abscess) Extremities: Yes: WNL Edema: No Peripheral Pulses WNL: Yes Neurological: Yes: Alert, Oriented Psychiatric: Yes: Alert, Oriented Labs: CBC, BMP 02/20/19 07:00 02/20/19 07:00 INR, PTT INR 0.92 (0.83-1.09) 02/19/19 17:45 Problem List - Problems (1) Cellulitis of right hand Assessment/Plan: -ID on board -Micro pending -Seen by Ortho -S/P I&D -IV abx -afebrile -no leukocytosis Problems reviewed: Yes Code(s): L03.113 - CELLULITIS OF RIGHT UPPER LIMB (2) Diabetes mellitus Assessment/Plan: -A1c at 5.4 -D/C metformin Code(s): E11.9 - TYPE 2 DIABETES MELLITUS WITHOUT COMPLICATIONS (3) Paronychia of finger of right hand Problems reviewed: Yes Code(s): L03.011 - CELLULITIS OF RIGHT FINGER Assessment/Plan see problem list
[2019-02-21] MEDS ORDERED: GABAPENTIN 300 MG CAPSULE (FP) PO SCH (10:15)
[2019-02-21] MEDS: HEPARIN NA (PORCINE) 5,000 UNITS/ML 1ML VIAL SQ SCH (10:31)
[2019-02-21] MEDS: LOSARTAN POTASSIUM 50 MG TABLET (FP) PO SCH (10:31)
[2019-02-21] MEDS ORDERED: ACETAMINOPHEN 325 MG TABLET (FP) PO PRN (10:34)
[2019-02-21] MEDS: VANCOMYCIN 1 GRAM (PRE-DOCKED) 1,000 MG/250 ML BAG IVPB SCH (11:54)
[2019-02-21 12:55] VITALS: PULSE 75
--- NOTE | 2019-02-21 14:42 | PN ---
Progress Note (short form) - Note Progress Note: Ortho Pt seen and examined s/p right index I&D, feeling better Selected Entries 02/21/19 12:00 Temperature 97.4 F L Pulse Rate 75 Respiratory 20 Rate Blood Pressure 119/54 L Laboratory Tests 02/20/19 07:00 WBC 4.7 Hgb 10.6 L Hct 31.3 L D Plt Count 230 no drainage, decr swelling ,decr erythema, incr rom nvi a/p IV abx as per protocol rom exercises warm soaks elevation will follow d/w Dr. Mathews
--- NOTE | 2019-02-21 14:57 | PN ---
Progress Note (short form) - Note Progress Note: doing well much improved hand swelling resolved, minimal swellling of the tip of the finger Vital Signs Period Temp Pulse Resp BP Sys/Malone Pulse Ox Last 24 Hr 97.4 F-98.7 F 71-90 18-20 97-134/53-67 99-100 CBC, BMP 02/20/19 07:00 02/20/19 07:00 Microbiology 02/20/19 09:40 Incision Gram Stain - Final 02/20/19 09:40 Incision Wound Culture - Preliminary 02/19/19 18:10 Blood - Peripheral Venous Blood Culture - Preliminary NO GROWTH OBTAINED AFTER 24 HOURS, INCUBATION TO CONTINUE FOR 4 DAYS. 02/19/19 18:10 Blood - Peripheral Venous Blood Culture - Preliminary NO GROWTH OBTAINED AFTER 24 HOURS, INCUBATION TO CONTINUE FOR 4 DAYS. a/p can d/c home on augmentin for one week with hand surgery f/u spoke with micro- no MRSA d/w [facility] Problem List - Problems (1) Paronychia of finger of right hand Code(s): L03.011 - CELLULITIS OF RIGHT FINGER (2) Cellulitis of right hand Code(s): L03.113 - CELLULITIS OF RIGHT UPPER LIMB (3) Diabetes mellitus Code(s): E11.9 - TYPE 2 DIABETES MELLITUS WITHOUT COMPLICATIONS
[2019-02-21 15:48] VITALS: BP 97/61; TEMP 98.3
[2019-02-22] MEDS ORDERED: RALOXIFENE HCL 60 MG PO SCH (10:00)
== END 2019-02-21 17:59 | disposition home or self-care (01) | DRG 581 ==
LOC: JER 15:50 → JERBED 21:38 → J5S 02-20 17:20
PROVIDERS: ADMIT Internal Medicine; ATTEND Family Medicine
PROC: 0J9J0ZZ Drainage of Right Hand Subcutaneous Tissue and Fascia, Open Approach (ICD-10-PCS; principal; 2019-02-20)
DX: L03.011 Cellulitis of right finger (principal); I10 Essential (primary) hypertension; E11.9 Type 2 diabetes mellitus without complications; E78.00 Pure hypercholesterolemia, unspecified; D64.9 Anemia, unspecified
CPT/HCPCS: 36415; 71046-TC-FY; 73130-TC-RT-FY; 80048; 80053; 82728; 83036; 83540; 83550; 85025; 85610; 87040; 87070; 87205; 93005; 93010; 99282-25; 99285-25; G0480; J1644

== ENCOUNTER 2019-02-24 13:04 | Emergency (ER) | payer OTHER ==
[2019-02-24 13:08] VITALS: BP 125/51; PULSE 85; TEMP 98; BMI 27.4
--- NOTE | 2019-02-24 13:13 | PDOC ---
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: mild edema noted to lat aspect of left hand dorsally, no increased warmth or skin discoloration, no palp fluctulance Pt ordered for: none Pt to proceed to the ED Discharge Disposition - Diagnosis Swelling of left hand - Discharge Dispostion Disposition: HOME Condition at time of disposition: Good - Prescriptions Prescriptions: Clindamycin [Cleocin -] 600 mg PO Q8H #42 capsule Ibuprofen 600 mg PO TID #20 tablet - Referrals Referrals: Houston Ramirez MD [Staff Physician] - - Patient Instructions Printed Discharge Instructions: DI for Cellulitis -- Adult Additional Instructions: Please take medications as prescribed until completed Return to ed for worsening of symptoms like increase redness, and swelling please remove artificial nails Call primary physician for follow up appointment - Post Discharge Activity Work/School Note: Back to Work
[2019-02-24] MEDS ORDERED: IBUPROFEN 600 MG TABLET (FP) PO ONE ×2 (13:36→13:40)
--- NOTE | 2019-02-24 13:46 | PDOC ---
History of Present Illness - General Chief Complaint: Pain Stated Complaint: LT HAND SWOLLEN Time Seen by Provider: 02/24/19 13:09 History Source: Patient Exam Limitations: No Limitations - History of Present Illness Initial Comments: 02/24/19 13:40 68 year old female with medical history of HTN, DM, cholesterol and no significant surgical history presents with reports of left hand pain since awakening yesterday. States no injury but recent admission for infection of right index finger. Denies fever, or chills but states swelling of left hand. Occurred: reports: yesterday Severity: reports: mild Upper Extremity Pain Location: right: 2nd finger, left: 3rd finger, hand Method of Injury: reports: unknown Modifying Factors: improves with: immobilization Extremity Pain Location - Extremity Pain Location Extremity Pain Locations: left: 3rd finger Past History - Travel Traveled outside of the country in the last 30 days: No Close contact w/someone who was outside of country & ill: No - Past Medical History Allergies/Adverse Reactions: Allergies Allergy/AdvReac Type Severity Reaction Status Date / Time shrimp Allergy Verified 02/24/19 13:08 shrimp Allergy Severe Swelling Uncoded 02/24/19 13:08 Home Medications: Ambulatory Orders Atenolol [Tenormin -] 25 mg PO DAILY 10/31/12 Chlorthalidone 50 mg PO DAILY 10/31/12 Fenofibrate 160 mg PO DAILY 10/31/12 Gabapentin [Neurontin -] 300 mg PO BID 10/31/12 Losartan Potassium [Cozaar -] 100 mg PO DAILY 10/31/12 Naproxen [Naprosyn -] 500 mg PO BID PRN 10/31/12 Raloxifene HCl [Evista] 60 mg PO DAILY 10/31/12 Oxycodone HCl/Acetaminophen [Percocet 5-325 mg Tablet] 1 - 2 tab PO Q6H PRN #0 tablet 11/01/12 Naproxen 500 mg PO BID #14 tablet. 02/17/19 Metformin HCl [Glucophage] 500 mg PO BID 02/20/19 Amox-Tr/K Cl [Augmentin - 875Mg Tablet] 1 tab PO BID #14 tablet 02/21/19 Clindamycin [Cleocin -] 600 mg PO Q8H #42 capsule 02/24/19 Ibuprofen 600 mg PO TID #20 tablet 02/24/19 Anemia: Yes Asthma: Yes Cancer: No Cardiac Disorders: No CVA: No COPD: No CHF: No Dementia: No Diabetes: Yes (BORDERLINE) GI Disorders: No Disorders: No HTN: Yes Hypercholesterolemia: Yes Liver Disease: No Seizures: No Thyroid Disease: No - Surgical History Abdominal Surgery: Yes (HERNIA REPAIR) Appendectomy: No Cardiac Surgery: No Cholecystectomy: No Lung Surgery: No Neurologic Surgery: No Orthopedic Surgery: No - Psycho Social/Smoking Cessation Hx Smoking History: Never smoked Have you smoked in the past 12 months: No Number of Cigarettes Smoked Daily: 3 Hx Alcohol Use: Yes ("Weekends") Drug/Substance Use Hx: No Substance Use Type: Alcohol Hx Substance Use Treatment: No Review of Systems - Review of Systems Able to Perform ROS?: Yes Is the patient limited Russian proficient: No Constitutional: No: Chills, Fever, Weakness HEENTM: No: Nose Pain, Throat Pain, Throat Swelling, Mouth Swelling Respiratory: No: Orthopnea Cardiac (ROS): No: Lightheadedness, Palpitations ABD/GI: No: Poor Appetite, Indigestion Integumentary: Yes: Other (swelling). No: Erythema Neurological: No: Numbness, Paresthesia *Physical Exam - Vital Signs Last Vital Signs Temp Pulse Resp BP Pulse Ox 98 F 85 18 125/51 L 100 02/24/19 13:05 02/24/19 13:05 02/24/19 13:05 02/24/19 13:05 02/24/19 13:05 - Physical Exam General Appearance: Yes: Nourished HEENT: positive: ALEJANDRA, TMs Normal, Pharynx Normal Neck: positive: Supple. negative: Lymphadenopathy (R), Lymphadenopathy (L) Respiratory/Chest: positive: Lungs Clear Cardiovascular: positive: Regular Rhythm, Regular Rate Musculoskeletal: positive: Normal Inspection Extremity: positive: Normal Capillary Refill, Inflammation. negative: Erythema Neurologic: positive: Fully Oriented, Alert, Normal Response ED Treatment Course - RADIOLOGY Radiology Studies Ordered: Category Date Time Status FINGER(S) LEFT [RAD] Stat Radiology 02/24/19 13:36 Ordered HAND- LEFT [RAD] Stat Radiology 02/24/19 13:36 Ordered Medical Decision Making - Medical Decision Making 02/24/19 13:48 68 year old female with medical history of HTN, DM, cholesterol and no significant surgical history presents with reports of left hand pain since awakening yesterday. left hand pain and swelling xray of left hand and left finger analgesia ordered 02/24/19 14:19 xray is negative for fracture or dislocation rx: clindamycin Discharge - Discharge Information Problems reviewed: Yes Clinical Impression/Diagnosis: Swelling of left hand Condition: Good Disposition: HOME - Admission No - Additional Discharge Information Prescriptions: Clindamycin [Cleocin -] 600 mg PO Q8H #42 capsule Ibuprofen 600 mg PO TID #20 tablet - Follow up/Referral Referrals: Houston Ramirez MD [Staff Physician] - - Patient Discharge Instructions Patient Printed Discharge Instructions: DI for Cellulitis -- Adult Additional Instructions: Please take medications as prescribed until completed Return to ed for worsening of symptoms like increase redness, and swelling please remove artificial nails Call primary physician for follow up appointment - Post Discharge Activity Work/Back to School Note: Back to Work
== END 2019-02-24 14:33 | disposition home or self-care (01) ==
LOC: JERFT 13:04
DX: M79.642 Pain in left hand (principal); M79.89 Other specified soft tissue disorders; E78.00 Pure hypercholesterolemia, unspecified; I10 Essential (primary) hypertension; E11.9 Type 2 diabetes mellitus without complications; Z79.84 Long term (current) use of oral hypoglycemic drugs; Z91.013 Allergy to seafood
CPT/HCPCS: 73130-TC-LT-FY; 73140-TC-LT-FY; 99282-25